=== PATIENT | female | born 2000 | race African-American/Black ===

== ENCOUNTER 2024-12-14 11:29 | Emergency (ER) | payer OTHER, SELFPAY ==
--- NOTE | ~2024-12-14 | XR_ITS ---
EXAMINATION: XR ankle RT min 3V DATE: 12/14/2024 13:03 INDICATION: Right ankle sprain TECHNIQUE: Anteroposterior, oblique, mortise, and lateral views of the right ankle were obtained. COMPARISON: None. FINDINGS: Alignment is normal. No fracture. Joint spaces are well maintained. Soft tissues are unremarkable. N o definitive ankle joint effusion. IMPRESSION: 1. No osseous abnormality. Reviewed, dictated and finalized at location A. [facility] IMPRESSION: 1. No osseous abnormality.
[2024-12-14 11:45] VITALS: BP 115/64; PULSE 85; RESP 16; TEMP 36.7; O2SAT 99
--- OUTSIDE RECORDS SUMMARY | 2024-12-14 12:48 | XMS_ITS | Referral Summary ---
Author Organization [facility] Address [address] [facility] [place] [address] Care Team Providers Care Employee Wellness/Fitness Coordinator Name Role Phone Hayes Alvarez MD Primary Care Provider [phone] Source Comments [facility] [employer],non-owned Affiliates and Associated Physician Practices is amultiple site organization consisting of ambulatory clinics and hospital sitesin [place] and [place]. This disclosure is being madepursuant to the Care Everywhere program and may not contain all information available regarding this patient. Last updated 18.[facility] [employer] Allergies Active Allergy Reactions Criticality Noted Date Comments Shellfish Swelling 01/19/2014 Voice changes teeth hurt Medications Be aware that medications may not be up to date on this document. Always verify current medications with the patient. No known medications Social History Tobacco Use Types Packs/Day Years Used Date Smoking Tobacco: Never Assessed Sex and Gender Information Value Date Recorded Sex Assigned at Not on file Gender Identity Not on file Sexual Orientation Not on file Last Filed Vital Signs Vital Sign Reading Time Taken Comments Blood Pressure 108/60 01/19/2014 9:50 PM CDT Pulse 64 01/19/2014 9:50 PM CDT Temperature 37.2 C (99 F) 01/19/2014 9:50 PM CDT Respiratory Rate 20 01/19/2014 9:50 PM CDT Oxygen Saturation - - Inhaled Oxygen Concentration - - Weight 65.1 kg (143 lb 8.3 oz) 01/19/2014 8:45 P M CDT Height - - Body Mass Index - - Plan of Treatment Not on file Care Teams Employee Wellness/Fitness Coordinator Relationship Specialty Start Date End Date Hayes Alvarez MD PCP - General Family Medicine 01/19/14
--- OUTSIDE RECORDS SUMMARY | 2024-12-14 12:48 | XMS_ITS | Referral Summary ---
Author Organization [facility] Address [address] [place] [id number] Care Team Providers Care Carrier Driver Name Role Phone Hayes Alvarez MD Primary Care Provider [phone] Encounters Date Type Department Care Team Description 12/10/2024 4:17 PM INSURANCE INSTRUCTOR - 12/10/2024 7:01 PM [facility] Emergency [address] [address] Acute right ankle pain (Primary Dx) Discharge Disposition: Discharge to home or self care from Last 3 Months Allergies Active Allergy Reactions Criticality Noted Date Comments Shellfish Containing Products Shortness of breath High 07/27/2023 Medications naproxen (NAPROSYN) 500 mg tablet Take 1 tablet (500 mg total) by mouth 2 (two) times a day with meals 30 tablet 3 Active triamcinolone (KENALOG) 0.1 % ointment Apply topically 2 (two) times a day for 7 days 30 g 3 Active ibuprofen (ADVIL,MOTRIN) 800 mg tabletIndicatio ns:Pain Take 1 tablet (800 mg total) by mouth 3 (three) times a day for 7 days 21 tablet 5 12/17/19 25 Active Social History Tobacco Use Types Packs/Day Years Used Date Smoking Tobacco: Never Assessed Personal Safety Answer Date Recorded Have you ever been in or are you currently in a harmful physical or emotional relationship or is someone making you feel afraid or unsafe? Denies 12/10/2024 Comments Unknown Sex and Gender Information Value Date Recorded Sex Assigned at Not on file Legal Sex Female 7:07 PM INSURANCE INSTRUCTOR Gender Identity Not on file Sexual Orientation Not on file Last Filed Vital Signs Vital Sign Reading Time Taken Comments Blood Pressure 122/77 12/10/2024 6:54 PM INSURANCE INSTRUCTOR Pulse 65 12/10/2024 6:54 PM INSURANCE INSTRUCTOR Temperature 37.2 C (99 F) 12/10/2024 4:18 PM INSURANCE INSTRUCTOR Respiratory Rate 16 12/10/2024 6:54 PM INSURANCE INSTRUCTOR Oxygen Saturation 100% 12/10/2024 6:54 PM INSURANCE INSTRUCTOR Inhaled Oxygen Concentration - - Weight 95.3 kg (210 lb) 10/02/2023 3:29 PM INSURANCE INSTRUCTOR Height 160 cm (5' 3 ) 10/02/2023 3:29 PM INSURANCE INSTRUCTOR Body Mass Index 37.2 10/02/2023 3:29 PM INSURANCE INSTRUCTOR Plan of Treatment Not on file Procedures Procedure Name Priority Date/Time Associated Diagnosis Comments XR ANKLE RIGHT 3 OR MORE VIEWS ED 12/10/2024 5:21 PM INSURANCE INSTRUCTOR from Last 3 Months Results * XR Ankle Right 3 or More Views (12/10/2024 5:21 PM INSURANCE INSTRUCTOR) Anatomical Region Laterality Modality Lower Extremities, Ankle Right Compute d Radiography 12/10/2024 5:38 PM INSURANCE INSTRUCTOR Narrative 12/10/2024 5:53 PM INSURANCE INSTRUCTOR EXAM DESCRIPTION: XR ANKLE RIGHT 3 OR MORE VIEWS REASON FOR STUDY: Lower Extremity Trauma Fall out of a work truck this morning. Pain medial and lateral ankle. TECHNIQUE: 3 radiographic view(s) of the right ankle . COMPARISON: Radiographs of the right ankle dated 07/27/2023. FINDINGS: BONES/JOINTS: There is no acute fracture, malalignment or osseous abnormality. The joint spaces are normal. SOFT TISSUES: Within normal limits. IMPRESSION: No acute osseous abnormality. THIS IS AN ELECTRONICALLY VERIFIED FINAL REPORT 12/10/2024 5:53 PM - Electronically signed by Austin Maldonado M.D. T: Report ID: [id number] Reading Location: [id number] Procedure Note Austin Maldonado, - 12/10/2024 EXAM DESCRIPTION: XR ANKLE RIGHT 3 OR MORE VIEWS REASON FOR STUDY: Lower Extremity Trauma Fall out of a work truck this morning. Pain medial and lateral ankle. TECHNIQUE: 3 radiographic view(s) of the right ankle . COMPARISON: Radiographs of the right ankle dated 07/27/2023. FINDINGS: BONES/JOINTS: There is no acute fracture, malalignment orosseous abnormality. The joint spaces are normal. SOFT TISSUES: Within normal limits. IMPRESSION: No acute osseous abnormality. THIS IS AN ELECTRONICALLY VERIFIED FINAL REPORT 12/10/2024 5:53 PM - Electronically signed by Austin Maldonado M.D. T: Report ID: [id number] Reading Location: [place] [address] Marlin FUNES IMG XR PROCEDURES Final Result from Last 3 Months Insurance [facility] WORKERS COMPENSATION [facility] COMPENSATION [facility] Care Teams Carrier Driver Relationship Specialty Start Date End Date Hayes Alvarez MD [address] [address] PCP - General 03/19/19
--- OUTSIDE RECORDS SUMMARY | 2024-12-14 12:48 | XMS_ITS | Patient Health Summary ---
Author Organization [facility] Address [address] [facility] [place] [address] Care Team Providers Care Order Booker Name Role Phone Hayes Alvarez MD Primary Care Provider [phone] Note from [facility],non-owned Affiliates and Associated Physician Practices is amultiple site organization consisting of ambulatory clinics and hospital sitesin [place], [place] and [place]. This disclosure is being madepursuant to the Care Everywhere program and may not contain all information available regarding this patient. Last updated 18.[facility] Allergies * Shellfish(Swelling) Medications Be aware that medications may not [...] - - Body Mass Index - - Care Teams Order Booker Relationship Specialty Start Date End Date Hayes Alvarez MD PCP - General Family Medicine 01/19/14
--- OUTSIDE RECORDS SUMMARY | 2024-12-14 12:48 | XMS_ITS | Clinical Summary ---
Author Organization [email or web address] Address [address] [facility] [place] [address] Care Team Providers Care Job Spotter Name Role Phone Hayes Alvarez MD Primary Care Provider [phone] Source Comments [facility] [email or web address],non-owned Affiliates and Associated Physician Practices is amultiple site organization consisting of ambulatory clinics and hospital sitesin [place], [place], [place] and [place]. This disclosure is being madepursuant to the Care Everywhere program and may not contain all information available regarding this patient. Last updated 18.[email or web address] Allergies Active Allergy Reactions Criticality Noted Date [...] Mass Index - - Plan of Treatment Health Maintenance Due Date Last Done Comments PAP SMEAR 1999 HIV SCREENING 2014 HPV VACCINE (1 - 3-dose series) 2014 CHLAMYDIA/GONORRHEA SCREENING 2015 HEPATITIS C SCREENING 09/26/2017 DTAP/TDAP/TD VACCINES (1 - Tdap) 2018 HEPATITIS B VACCINE (1 of 3 - 19+ 3-dose series) 2018 COVID-19 VACCINE (2023-2 5 season) 2024 INFLUENZA VACCINE (#1) 2024 DEPRESSION SCREENING 11/03/2024 ZOSTER VACCINE (1 of 2) 2049 HIB VACCINE Aged Out No longer eligi ble based on patient's age to complete this topic MENINGOCOCCAL (Group B) VACCINE Aged Out No longer eligible based on patient's age to complete this topic MENINGOCOCCAL VACCINE Aged Out No radhika louis eligible based on patient's age to complete this topic PNEUMOCOCCAL VACCINE Aged Out No long er eligible based on patient's age to complete this topic Care Teams Job Spotter Relationship Specialty Start Date End Date Hayes Alvarez MD PCP - General Family Medicine 01/19/14
--- OUTSIDE RECORDS SUMMARY | 2024-12-14 12:48 | XMS_ITS | Clinical Summary ---
Author Organization [facility] Address [address] [place] [phone] Care Team Providers Care Manager Audio Name Role Phone Hayes Alvarez MD Primary Care Provider Allergies Active Allergy Reactions Criticality Noted Date [...] days 21 tablet 5 12/17/19 25 Active Encounters Date Type Department Care Team Description 12/10/2024 4:17 PM MANAGER PRODUCE - 12/10/2024 7:01 PM [facility] Emergency [address] [phone] Acute right ankle pain (Primary Dx) Discharge Disposition: Discharge to home or self care from Last 3 Months Social History Tobacco Use Types Packs/Day Years [...] on file Legal Sex Female 7:07 PM MANAGER PRODUCE Gender Identity Not on file Sexual Orientation Not on file Obstetrics History Last Filed Vital Signs Vital Sign Reading Time Taken Comments Blood Pressure 122/77 12/10/2024 6:54 PM MANAGER PRODUCE Pulse 65 12/10/2024 6:54 PM MANAGER PRODUCE Temperature 37.2 C (99 F) 12/10/2024 4:18 PM MANAGER PRODUCE Respiratory Rate 16 12/10/2024 6:54 PM MANAGER PRODUCE Oxygen Saturation 100% 12/10/2024 6:54 PM MANAGER PRODUCE Inhaled Oxygen Concentration - - Weight 95.3 kg (210 lb) 10/02/2023 3:29 PM MANAGER PRODUCE Height 160 cm (5' 3 ) 10/02/2023 3:29 PM MANAGER PRODUCE Body Mass Index 37.2 10/02/2023 3:29 PM MANAGER PRODUCE Plan of Treatment Health Maintenance Due Date Last Done Comments Cervical Cancer Screening 1999 Depression Screening 1999 Hepatitis C Screening 1999 Regular Well Visit/Exam 18-64 2017 Covid-19 Vaccine ( season) 2024 12/13/2021, 04/06/2021, 03/16/2021 Influenza Vaccine (#1) 2024 , 09/19/2010, 09/21/2008 DTaP/Tdap/Td Vaccine (9 - Td or Tdap) 03/19/2029 03/19/2019, 03/19/2019, 05/08/2011, Additional history exists Pneumococcal vaccine <65 Aged Out 10/02/2000, 07/05 No longer eligible based on patient's age to complete this topic Hepatitis B Screening Completed 10/05/2000 , 04/11/2000, 04/11/2000, Additional history exists Varicella Vaccines Completed 04/14/2009, 10/02/2000 HPV Vaccines Completed 04/14/2014, 0804/2012, 05/08/2011 Procedures Procedure Name Priority Date/Time Associated Diagnosis Comments XR ANKLE RIGHT 3 OR MORE VIEWS ED 12/10/2024 5:21 PM MANAGER PRODUCE from Last 3 Months Results * XR Ankle Right 3 or More Views (12/10/2024 5:21 PM MANAGER PRODUCE) Anatomical Region Laterality Modality Lower Extremities, Ankle Right Compute d Radiography 12/10/2024 5:38 PM MANAGER PRODUCE Narrative 12/10/2024 5:53 PM MANAGER PRODUCE EXAM DESCRIPTION: XR ANKLE RIGHT 3 OR [...] by Austin Maldonado M.D. T: Report ID: [id number] Reading Location: [id number] Procedure Note Austin Maldonado, - 12/10/2024 EXAM [...] by Austin Maldonado M.D. T: Report ID: [id number] Reading Location: [id number] Marlin FUNES IMG XR PROCEDURES Final Result from Last 3 Months Insurance [facility] WORKERS COMPENSATION [facility] COMPENSATION [facility] Care Teams Manager Audio Relationship Specialty Start Date End Date Hayes Alvarez MD [address] [address] PCP - General 03/19/19
--- NOTE | 2024-12-14 13:48 | ED.LOWEXIN ---
HPI - Extremity Injury (Lower) General Chief Complaint: Extremity Injury, Lower Stated Complaint: right ankle sprain wants release to work Time Seen by Provider: 12/14/24 13:26 History of Present Illness HPI Narrative: 24-year-old female presenting to the ER for evaluation of right ankle pain and needing a work note. She has pain her ankle at work 4 days prior. She has been using conservative therapies at home with improvement and is able to ambulate. No instability in the leg or any footdrop. Denies any other injuries. Was otherwise in her normal state of health but needs a work note to go back to work. Related Data Allergies Allergy/AdvReac Type Severity Reaction Status Date / Time SHELLFISH Allergy Mild Unknown Uncoded 01/11/21 09:04 Review of Systems Review of Systems: As reviewed above in HPI PMFSH Family History Family History Mother Hypertension Family history of diabetes mellitus in first degree relative Grandparent Cerebrovascular accident Diabetes mellitus Social History Social History Smoking status: Never smoker Second hand tobacco smoke exposure: No Alcohol intake: never Exam Narrative: GENERAL: [Well-appearing, well-nourished, and in no acute distress.] HEAD: [Normocephalic, atraumatic.] CHEST: Nonlabored breathing EXTREMITIES: Normal range of motion. [No edema.] SKIN: Warm, dry, no rash. NEURO: [No focal deficits]. Alert and oriented [x3.] PSYCH: [Normal mood and affect.] Course Vital Signs Vital signs: Vital Signs Temperature 36.7 C 12/14/24 11:45 Pulse Rate 85 12/14/24 11:45 Respiratory Rate 16 12/14/24 11:45 Blood Pressure 115/64 12/14/24 11:45 Pulse Oximetry 99 12/14/24 11:45 Oxygen Delivery Room Air 12/14/24 11:45 Temperature 36.7 C 12/14/24 11:45 Pulse Rate 85 12/14/24 11:45 Respiratory Rate 16 12/14/24 11:45 Blood Pressure 115/64 12/14/24 11:45 Pulse Oximetry 99 12/14/24 11:45 Oxygen Delivery Room Air 12/14/24 11:45 MDM - Extremity Injury (Lower) MDM Narrative Medical decision making narrative: 24-year-old female who twisted her ankle at work on 12/10/2024. Presents today for work note. She is asymptomatic presently, ambulating without assistance. Normal vital signs. Ankle x-rays obtained which shows no acute osseous process or fracture. Patient declined any analgesia medications or any kind of Dave wrap. She is safe and stable for discharge home with work note provided. Medical Records Attestation: I reviewed the patient's medical records. Imaging Data Attestation: I personally reviewed and interpreted this imaging study as follows: My impression: Impressions Ankle X-Ray 12/14/24 13:05 IMPRESSION: 1. No osseous abnormality. Discharge Plan Discharge Clinical Impression: Ankle sprain and strain Patient Disposition: Home, Self-Care Condition: Stable Instructions: Antibiotic Form Additional Instructions: Return to work tomorrow, follow-up with regular doctor, continue using [id number] therapies and ice at home for pain. Patient Language: Armenian Prescriptions: No Action metronidazole [Flagyl] 500 mg tablet 500 mg PO Q12H Qty: 14 0RF metronidazole [Flagyl] 500 mg tablet 2,000 mg PO ONCE Qty: 4 0RF Follow-up/Referrals: Kim,Hayes Leung MD [Primary Care Provider] - Stand Alone Forms: Work/School Release IP Time of Disposition: 13:51
--- OUTSIDE RECORDS SUMMARY | 2024-12-14 14:30 | XMS_ITS | Referral Summary ---
Author Organization [facility] Address [address] [place] [phone] Care Team Providers Care Traffic Enumerator Name Role Phone Hayes Alvarez MD Primary Care Provider Encounters Date Type Department Care Team Description 12/10/2024 4:17 PM GRAB JACK WORKER - 12/10/2024 7:01 PM [facility] Emergency [address] [address] Acute right ankle pain (Primary [...] on file Legal Sex Female 7:07 PM GRAB JACK WORKER Gender Identity Not on file Sexual Orientation Not on file Last Filed Vital Signs Vital Sign Reading Time Taken Comments Blood Pressure 122/77 12/10/2024 6:54 PM GRAB JACK WORKER Pulse 65 12/10/2024 6:54 PM GRAB JACK WORKER Temperature 37.2 C (99 F) 12/10/2024 4:18 PM GRAB JACK WORKER Respiratory Rate 16 12/10/2024 6:54 PM GRAB JACK WORKER Oxygen Saturation 100% 12/10/2024 6:54 PM GRAB JACK WORKER Inhaled Oxygen Concentration - - Weight 95.3 kg (210 lb) 10/02/2023 3:29 PM GRAB JACK WORKER Height 160 cm (5' 3 ) 10/02/2023 3:29 PM GRAB JACK WORKER Body Mass Index 37.2 10/02/2023 3:29 PM GRAB JACK WORKER Plan of Treatment Not on file Procedures Procedure Name Priority Date/Time Associated Diagnosis Comments XR ANKLE RIGHT 3 OR MORE VIEWS ED 12/10/2024 5:21 PM GRAB JACK WORKER from Last 3 Months Results * XR Ankle Right 3 or More Views (12/10/2024 5:21 PM GRAB JACK WORKER) Anatomical Region Laterality Modality Lower Extremities, Ankle Right Compute d Radiography 12/10/2024 5:38 PM GRAB JACK WORKER Narrative 12/10/2024 5:53 PM GRAB JACK WORKER EXAM DESCRIPTION: XR ANKLE RIGHT 3 OR [...] by Austin Maldonado M.D. T: Report ID: [id number] Reading Location: [id number] Procedure Note Austin Maldonado, - 12/10/2024 EXAM [...] by Austin Maldonado M.D. T: Report ID: [id number] Reading Location: [place] [address] Marlin FUNES IMG XR PROCEDURES Final Result from Last 3 Months Insurance [facility] WORKERS COMPENSATION [facility] COMPENSATION [facility] Care Teams Traffic Enumerator Relationship Specialty Start Date End Date Hayes Alvarez MD [address] [address] PCP - General 03/19/19
--- OUTSIDE RECORDS SUMMARY | 2024-12-14 14:30 | XMS_ITS | Clinical Summary ---
Author Organization [facility] Address [address] [place] [phone] Care Team Providers Care Director Of Market Research Name Role Phone Hayes Alvarez MD Primary Care Provider [phone] Allergies Active Allergy Reactions Criticality Noted Date [...] Department Care Team Description 12/10/2024 4:17 PM GAMING DEPARTMENT HEAD - 12/10/2024 7:01 PM [facility] Emergency [address] [phone] Acute right ankle pain (Primary Dx) Discharge [...] on file Legal Sex Female 7:07 PM GAMING DEPARTMENT HEAD Gender Identity Not on file Sexual Orientation Not on file Obstetrics History Last Filed Vital Signs Vital Sign Reading Time Taken Comments Blood Pressure 122/77 12/10/2024 6:54 PM GAMING DEPARTMENT HEAD Pulse 65 12/10/2024 6:54 PM GAMING DEPARTMENT HEAD Temperature 37.2 C (99 F) 12/10/2024 4:18 PM GAMING DEPARTMENT HEAD Respiratory Rate 16 12/10/2024 6:54 PM GAMING DEPARTMENT HEAD Oxygen Saturation 100% 12/10/2024 6:54 PM GAMING DEPARTMENT HEAD Inhaled Oxygen Concentration - - Weight 95.3 kg (210 lb) 10/02/2023 3:29 PM GAMING DEPARTMENT HEAD Height 160 cm (5' 3 ) 10/02/2023 3:29 PM GAMING DEPARTMENT HEAD Body Mass Index 37.2 10/02/2023 3:29 PM GAMING DEPARTMENT HEAD Plan of Treatment Health Maintenance Due Date [...] OR MORE VIEWS ED 12/10/2024 5:21 PM GAMING DEPARTMENT HEAD from Last 3 Months Results * XR Ankle Right 3 or More Views (12/10/2024 5:21 PM GAMING DEPARTMENT HEAD) Anatomical Region Laterality Modality Lower Extremities, Ankle Right Compute d Radiography 12/10/2024 5:38 PM GAMING DEPARTMENT HEAD Narrative 12/10/2024 5:53 PM GAMING DEPARTMENT HEAD EXAM DESCRIPTION: XR ANKLE RIGHT 3 OR [...] by Austin Maldonado M.D. T: Report ID: [id number] Reading Location: [id number] Procedure Note Austin Maldonado, - 12/10/2024 EXAM [...] by Austin Maldonado M.D. T: Report ID: [id number] Reading Location: [id number] Marlin FUNES IMG XR PROCEDURES Final Result from Last 3 Months Insurance [facility] WORKERS COMPENSATION [facility] COMPENSATION [facility] Care Teams Director Of Market Research Relationship Specialty Start Date End Date Hayes Alvarez MD [address] [address] PCP - General 03/19/19
--- OUTSIDE RECORDS SUMMARY | 2024-12-14 14:30 | XMS_ITS | Clinical Summary ---
Author Organization [facility] [employer] Address [address] [facility] [place] [address] Care Team Providers Care Music Library Assistant Name Role Phone Hayes Alvarez MD Primary Care Provider [phone] Source Comments [facility] [employer],non-owned Affiliates and Associated Physician Practices is amultiple site organization consisting of ambulatory clinics and hospital sitesin [place], [place], [place] and [place]. This disclosure is being madepursuant to the Care Everywhere program and may not contain all information available regarding this patient. Last updated 18.[facility] [employer] Allergies Active Allergy Reactions Criticality Noted Date [...] age to complete this topic Care Teams Music Library Assistant Relationship Specialty Start Date End Date Hayes Alvarez MD PCP - General Family Medicine 01/19/14
--- OUTSIDE RECORDS SUMMARY | 2024-12-14 14:30 | XMS_ITS | Referral Summary ---
Author Organization [facility] Address [address] [facility] [place] [address] Care Team Providers Care Lumber Tailer Name Role Phone Hayes Alvarez MD Primary Care Provider [phone] [facility] [employer],non-owned Affiliates and Associated Physician Practices is amultiple site organization consisting of ambulatory clinics and hospital sitesin [place], [place], [place] and [place]. This disclosure is being madepursuant to the Care Everywhere program and may not contain all information available regarding this patient. Last updated 18.[facility] [employer] Allergies Active Allergy Reactions Criticality Noted Date [...] of Treatment Not on file Care Teams Lumber Tailer Relationship Specialty Start Date End Date Hayes Alvarez MD PCP - General Family Medicine 01/19/14
--- OUTSIDE RECORDS SUMMARY | 2024-12-14 14:30 | XMS_ITS | Patient Health Summary ---
Author Organization [facility] Address [address] [place] [address] Care Team Providers Care Principal Web Developer Name Role Phone Hayes Alvarez MD Primary Care Provider [phone] Note from [facility],non-owned Affiliates and Associated Physician Practices is amultiple site organization consisting of ambulatory clinics and hospital sitesin [place], [place], [place] and [place]. This disclosure is being madepursuant to the Care Everywhere program and may not contain all information available regarding this patient. Last updated 18.[facility] Allergies * Shellfish(Swelling) Medications Be aware [...] Body Mass Index - - Care Teams Principal Web Developer Relationship Specialty Start Date End Date Hayes Alvarez MD PCP - General Family Medicine 01/19/14
== END 2024-12-14 14:03 | disposition home or self-care (01) ==
PROVIDERS: Emergency Provider Student in an Organized Health Care Education/Training Program; PCP Family Medicine
DX: S93.401A Sprain of unspecified ligament of right ankle, initial encounter (principal); X50.0XXA Overexertion from strenuous movement or load, initial encounter
CPT/HCPCS: 73610; 99283